=== PATIENT | female | born 1995 | race Caucasian/White ===

== ENCOUNTER 2021-06-20 15:22 | Emergency (ER) | payer MEDICAID, OTHER ==
[~2021-06-20] VITALS: Ht 167.6 cm; Wt 61.4 kg
[2021-06-20 15:23] VITALS: BP 155/98
== END 2021-06-20 20:05 | disposition home or self-care (01) ==
LOC: EMS 15:24
DX: M54.2 Cervicalgia (principal); M54.5 Low back pain; M54.6 Pain in thoracic spine; G43.909 Migraine, unspecified, not intractable, without status migrainosus; V43.52XA Car driver injured in collision with other type car in traffic accident, initial encounter; Y93.89 Activity, other specified; Y92.410 Unspecified street and highway as the place of occurrence of the external cause; Y99.8 Other external cause status
CPT/HCPCS: 72040; 72070; 72100; 99284; Z7502

== ENCOUNTER 2021-07-14 06:23 | Emergency (ER) | payer OTHER ==
[~2021-07-14] VITALS: Ht 167.6 cm; Wt 61.4 kg
[2021-07-14] MEDS ORDERED: KETOROLAC TROMETHAMINE 30 MG/ML VIAL IVP ONE (07:00)
[2021-07-14] MEDS ORDERED: LIDOCAINE 5% TRANSDERMAL PATCH TD ONE (07:15)
[2021-07-14] MEDS ORDERED: ACETAMINOPHEN 325 MG TABLET PO ONE (07:15)
[2021-07-14 07:20] LABS: GLUCOSE,POINT OF CARE 97 MG/DL (70-110)
[2021-07-14 07:21] LABS: BASOPHILS % (AUTO) 0.3 % (0.0-2.0); EOSINOPHILS % (AUTO) 0.6 % (1.0-6.0); HEMATOCRIT 36.1 % (36-46); HEMOGLOBIN 11.9 g/dL (12.0-16.0); LYMPHOCYTES # (AUTO) 0.9 K/uL (1.0-4.8); LYMPHOCYTES % (AUTO) 14.9 % (22.0-44.0); MEAN CORPUSCULAR HEMOGLOBIN 29.4 pg (26.0-34.0); MEAN CORPUSCULAR VOLUME 89 fL (80-100); MONOCYTES # (AUTO) 0.4 K/uL (0.1-1.0); NEUTROPHILS # (AUTO) 4.6 K/uL (1.8-7.7); NEUTROPHILS % (AUTO) 77.2 % (40.0-70.0); PLATELET COUNT (AUTO) 234 K/uL (150-450); RED BLOOD CELL COUNT(AUTO) 4.06 MIL/uL (4.00-5.20); RED CELL DISTRIBUTION WIDTH 13.7 % (11.5-14.5)
[2021-07-14 07:42] LABS: ANION GAP 6 mmol/L (8-16); CALCIUM, TOTAL 8.7 mg/dL (8.8-10.5); CARBON DIOXIDE 29 mmol/L (22-29); CHLORIDE 107 mmol/L (98-107); CREATININE 0.69 mg/dL (0.60-1.30); GLOMERULAR FILTR. RATE CALC > 60 mL/min (>60); GLUCOSE,RANDOM 104 mg/dL (70-110); POTASSIUM 3.6 mmol/L (3.5-5.1); SODIUM SERUM 142 mmol/L (136-145); UREA NITROGEN, BLOOD 10 mg/dL (7-18)
[2021-07-14 07:47] LABS: ALANINE AMINOTRANSFERASE 23 U/L (12-78); ALBUMIN 4.3 g/dL (3.4-5.0); ALKALINE PHOSPHATASE 47 U/L (46-116); ASPARTATE AMINOTRANSFERASE 12 U/L (15-37); BILIRUBIN,TOTAL 0.5 mg/dL (0.1-1.0); HCG,QUANTITATIVE < 1 mIU/mL (0-6); TOTAL PROTEIN, SERUM 7.6 g/dL (6.4-8.2)
[2021-07-14] MEDS ORDERED: SODIUM CHLORIDE 0.9% 100 ML ONE (08:13)
[2021-07-14] MEDS ORDERED: IOHEXOL 350 MG/ML 100 ML VIAL ONE (08:13)
[2021-07-14 08:50] VITALS: BP 114/59
[2021-07-14 10:51] LABS: APPEARANCE,URINE CLEAR (CLEAR); BILIRUBIN,URINE NEGATIVE (NEGATIVE); GLUCOSE, URINE (UA) NEGATIVE (NEGATIVE); KETONES,URINE NEGATIVE (NEGATIVE); LEUKOCYTE ESTERASE ,URINE NEGATIVE (NEGATIVE); NITRATE,URINE NEGATIVE (NEGATIVE); OCCULT BLOOD,URINE LARGE (NEGATIVE); PROTEIN,URINE NEGATIVE (NEGATIVE); UROBILINOGEN,URINE 0.2 mg/dL (<=1.0)
[2021-07-14 11:58] LABS: SQUAMOUS EPITHELIAL CELL,UR Few /LPF (None Seen)
[2021-07-14 12:00] LABS: BACTERIA,URINE None Seen /HPF (None Seen); RBC,URINE 0-2 /HPF (0-2); WBC,URINE 0-2 /HPF (0-5)
== END 2021-07-14 11:36 | disposition home or self-care (01) ==
LOC: EMS 06:25
DX: N20.0 Calculus of kidney (principal); Z87.891 Personal history of nicotine dependence
CPT/HCPCS: 36415; 72131; 74177; 76830; 76856; 80053; 81001; 82962; 83690; 84702; 85025; 96374; 99285; A9575; J1885; J7050; Q9967